=== PATIENT | male | born 1945 | race Caucasian/White ===

== ENCOUNTER → 2016-11-05 | Outpatient (CLI) | payer MEDICARE, OTHER ==
[~2016-11-05] VITALS: Ht 177.8 cm; Wt 108.0 kg
[~2016-11-05] MED LIST: ASPIRIN E.C. 8181 MG PO; IRON PO; IRON325 MG PO; LIPITOR 10MG10 MG PO; MICARDIS HCT 121 TA1 PO; VITAMIN B COMPL1 TA1 PO; VITAMIN C500 MG PO; blood pressure
[2016-11-05 06:15] VITALS: BP 141/62; PULSE 70
[2016-11-05 07:05] VITALS: BP 135/80; PULSE 93
[2016-11-05 07:06] VITALS: BP 158/77; PULSE 98
[2016-11-05 07:07] VITALS: BP 163/82; PULSE 92
[2016-11-05 07:08] VITALS: BP 154/65; PULSE 77
== END ==
LOC: COL.CARD 05:45
DX: I25.10 Atherosclerotic heart disease of native coronary artery without angina pectoris (principal); I10 Essential (primary) hypertension; I65.23 Occlusion and stenosis of bilateral carotid arteries
CPT/HCPCS: A9502; J2785

== ENCOUNTER → 2016-11-20 | Outpatient (CLI) | payer MEDICARE, OTHER | LOC: COL.RAD 11-17 08:00 | DX: I65.23 Occlusion and stenosis of bilateral carotid arteries (principal) | CPT/HCPCS: Q9967 ==

== ENCOUNTER → 2018-06-02 | Outpatient (CLI) | payer MEDICARE, OTHER | LOC: COL.RAD 08:11 | DX: I71.4 Abdominal aortic aneurysm, without rupture (principal); I65.23 Occlusion and stenosis of bilateral carotid arteries ==

== ENCOUNTER → 2019-05-18 | Outpatient (CLI) | payer MEDICARE, OTHER | LOC: COL.RAD 08:45 | DX: I71.4 Abdominal aortic aneurysm, without rupture (principal); I65.23 Occlusion and stenosis of bilateral carotid arteries; Z68.35 Body mass index [BMI] 35.0-35.9, adult ==

== ENCOUNTER → 2020-08-15 | Outpatient (CLI) | payer MEDICARE, OTHER | LOC: COL.RAD 07:53 | DX: I71.4 Abdominal aortic aneurysm, without rupture (principal); I72.3 Aneurysm of iliac artery ==

== ENCOUNTER → 2021-08-18 | Outpatient (CLI) | payer MEDICARE, OTHER | LOC: COL.RAD 06:52 | DX: I71.4 Abdominal aortic aneurysm, without rupture (principal) ==

== ENCOUNTER → 2021-09-01 | Outpatient (CLI) | payer MEDICARE, OTHER | LOC: COL.RAD 12:29 | DX: Z12.2 Encounter for screening for malignant neoplasm of respiratory organs (principal); Z87.891 Personal history of nicotine dependence ==